=== PATIENT | male | born 1965 | race Asian ===

== ENCOUNTER 2023-01-05 03:52 | Day surgery (SDC) | payer OTHER ==
[2022-12-28 14:44] VITALS: BMI 29.2
[2023-01-05 11:51] VITALS: RESP 18
[2023-01-05] MEDS ORDERED: MIDAZOLAM HCL 2 MG/2 ML SINGLE DOSE VIAL ONE (15:31)
[2023-01-05] MEDS ORDERED: PROPOFOL 20 ML ONE (16:03)
[2023-01-05 17:40] VITALS: BP 156/87; PULSE 69; TEMP 97.8
== END 2023-01-05 17:50 | disposition home or self-care (01) ==
LOC: JASU-SURG 03:52
PROVIDERS: ATTEND Urology
PROC: 0TF3XZZ Fragmentation in Right Kidney Pelvis, External Approach (ICD-10-PCS; principal; 2023-01-05 14:30)
DX: N20.0 Calculus of kidney (principal)
CPT/HCPCS: 82962